=== PATIENT | male | born 2000 | race Caucasian/White ===

== ENCOUNTER 2018-10-28 23:32 | Emergency (ER) | payer BC ==
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
[2018-10-29] MEDS ORDERED: IBUPROFEN 600 MG TAB PO ONE (00:36)
[2018-10-29 01:05] VITALS: BP 128/65
== END 2018-10-29 01:04 | disposition home or self-care (01) ==
DX: S16.1XXA Strain of muscle, fascia and tendon at neck level, initial encounter (principal); V18.0XXA Pedal cycle driver injured in noncollision transport accident in nontraffic accident, initial encounter; Y92.480 Sidewalk as the place of occurrence of the external cause; Y93.55 Activity, bike riding

== ENCOUNTER 2018-10-29 13:27 | Emergency (ER) | payer BC ==
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
[2018-10-29 16:04] VITALS: BP 110/76
== END 2018-10-29 16:06 | disposition home or self-care (01) ==
DX: S06.0X0D Concussion without loss of consciousness, subsequent encounter (principal)